=== PATIENT | female | born 1995 | race Hispanic/Latino ===

== ENCOUNTER 2018-02-17 11:44 | Emergency (ER) | payer OTHER ==
[~2018-02-17] VITALS: Ht 160 cm; Wt 60.7 kg
[2018-02-17] MEDS ORDERED: PEN-VEE K,VEET500 MG PO (12:22)
[2018-02-17] MEDS ORDERED: NORCO 5/3251 TABLET PO (12:22)
[2018-02-17 12:51] VITALS: BP 140/88
== END 2018-02-17 13:31 | disposition home or self-care (01) ==
LOC: EME 11:44
DX: S02.5XXA Fracture of tooth (traumatic), initial encounter for closed fracture (principal); X58.XXXA Exposure to other specified factors, initial encounter; K04.7 Periapical abscess without sinus
CPT/HCPCS: 99281; 99283